=== PATIENT | female | born 1955 | race Two or more races ===

== ENCOUNTER 2023-02-12 14:55 | Inpatient (IN) | payer OTHER ==
[~2023-02-12] VITALS: Ht 170.2 cm; Wt 73.5 kg
[2023-02-12] MEDS ORDERED: CITALOPRAM20 MG/10 M PO (15:05)
[2023-02-12] MEDS ORDERED: LATANOPROST2.5 ML OP (15:05)
[2023-02-12] MEDS ORDERED: ACTOS30 MG PO (15:05)
[2023-02-12] MEDS ORDERED: VYTORIN 10-101 EACH PO (15:06)
[2023-02-12] MEDS ORDERED: FOLIC ACID20 MG PO (15:06)
[2023-02-12] MEDS ORDERED: METHOTREXATE2.5 MG PO (15:06)
[2023-02-12] MEDS ORDERED: MILLIPRED5 MG PO (15:06)
[2023-02-12] MEDS ORDERED: COZAAR25 MG PO (15:07)
[2023-02-13] MEDS ORDERED: METFORMIN HCL500 M1 (08:32)
[2023-02-13] MEDS ORDERED: RAYOS5 MG (08:32)
[2023-02-13] MEDS ORDERED: EZETIMIBE10 MG (08:32)
[2023-02-13] MEDS ORDERED: LOSARTAN POTASS50 MG (08:32)
[2023-02-13] MEDS ORDERED: FOLIC ACID1 MG (08:33)
[2023-02-13] MEDS ORDERED: CITALOPRAM HBR10 MG (08:33)
== END 2023-02-20 15:20 | disposition home or self-care (01) | DRG 522 ==
LOC: ER 14:55 → SEC-K 21:36 → MEDI 21:36 → SURG 02-17 23:00
PROVIDERS: Orthopaedic Surgery; ADMIT Specialist; ATTEND Specialist
PROC: BR20ZZZ Computerized Tomography (CT Scan) of Cervical Spine (ICD-10-PCS; 2023-02-12)
PROC: B020ZZZ Computerized Tomography (CT Scan) of Brain (ICD-10-PCS; 2023-02-12)
PROC: 3E0F7SF Introduction of Other Gas into Respiratory Tract, Via Natural or Artificial Opening (ICD-10-PCS; 2023-02-12)
PROC: BQ2SZZZ Computerized Tomography (CT Scan) of Left Lower Extremity (ICD-10-PCS; 2023-02-12)
PROC: 30243N1 Transfusion of Nonautologous Red Blood Cells into Central Vein, Percutaneous Approach (ICD-10-PCS; 2023-02-13)
PROC: 0SRS0JZ Replacement of Left Hip Joint, Femoral Surface with Synthetic Substitute, Open Approach (ICD-10-PCS; principal; 2023-02-17 14:00)
DX: S72.092A Other fracture of head and neck of left femur, initial encounter for closed fracture (principal); N39.0 Urinary tract infection, site not specified; M33.20 Polymyositis, organ involvement unspecified; D64.89 Other specified anemias; M16.12 Unilateral primary osteoarthritis, left hip; M85.862 Other specified disorders of bone density and structure, left lower leg; M50.30 Other cervical disc degeneration, unspecified cervical region; R51.9 Headache, unspecified; W01.190A Fall on same level from slipping, tripping and stumbling with subsequent striking against furniture, initial encounter; Y93.89 Activity, other specified; Y92.814 Boat as the place of occurrence of the external cause; Y99.9 Unspecified external cause status; B96.89 Other specified bacterial agents as the cause of diseases classified elsewhere; E11.22 Type 2 diabetes mellitus with diabetic chronic kidney disease; I12.9 Hypertensive chronic kidney disease with stage 1 through stage 4 chronic kidney disease, or unspecified chronic kidney disease; N18.30 Chronic kidney disease, stage 3 unspecified; Z79.84 Long term (current) use of oral hypoglycemic drugs; Z20.822 Contact with and (suspected) exposure to COVID-19